=== PATIENT | male | born 1945 | race Caucasian/White ===

== ENCOUNTER 2020-11-25 09:59 | Outpatient (RCR) | payer MEDICARE, OTHER ==
[2021-02-12] MEDS ORDERED: OMEG100032 PO (09:40)
[2021-02-12] MEDS ORDERED: TMSL.4C PO (09:40)
[2021-02-12] MEDS ORDERED: MAGN250T13 PO (09:40)
[2021-02-12] MEDS ORDERED: CHOL200059 PO (09:40)
[2021-02-12] MEDS ORDERED: ASCO100024 PO (09:40)
[2021-02-12] MEDS ORDERED: ASPI-999 PO (09:40)
[2021-02-12] MEDS ORDERED: SIMV40TA25 PO (09:40)
[2021-02-12] MEDS ORDERED: NADO80TA2 PO (09:40)
[2021-02-12] MEDS ORDERED: NITR0.4T39 SL (09:40)
[2021-02-12] MEDS ORDERED: PANT40TA52 PO (09:40)
[2021-02-12] MEDS ORDERED: ISOS30TA82 PO (09:40)
[2021-02-12] MEDS ORDERED: AMLO-250 PO (09:40)
[2021-02-19] MEDS ORDERED: CIPR-226 PO (10:20)
[2021-02-19] MEDS ORDERED: ACET1TAB43 PO (10:20)
== END 2021-02-23 | disposition home or self-care (01) ==
LOC: ONC 09:59
PROVIDERS: ATTEND Radiology Radiation Oncology
DX: C61 Malignant neoplasm of prostate (principal); I11.9 Hypertensive heart disease without heart failure; K21.9 Gastro-esophageal reflux disease without esophagitis; E78.00 Pure hypercholesterolemia, unspecified
CPT/HCPCS: 76873; G0463; 99205

== ENCOUNTER 2021-02-12 05:32 | Outpatient (CLI) | payer MEDICARE, OTHER ==
[~2021-02-12] VITALS: Ht 165.1 cm; Wt 68.6 kg
[2021-02-12] MEDS ORDERED: PANT40TA52 PO (09:40)
[2021-02-12] MEDS ORDERED: OMEG100032 PO (09:40)
[2021-02-12] MEDS ORDERED: TMSL.4C PO (09:40)
[2021-02-12] MEDS ORDERED: AMLO-250 PO (09:40)
[2021-02-12] MEDS ORDERED: MAGN250T13 PO (09:40)
[2021-02-12] MEDS ORDERED: NITR0.4T39 SL (09:40)
[2021-02-12] MEDS ORDERED: SIMV40TA25 PO (09:40)
[2021-02-12] MEDS ORDERED: CHOL200059 PO (09:40)
[2021-02-12] MEDS ORDERED: NADO80TA2 PO (09:40)
[2021-02-12] MEDS ORDERED: ASCO100024 PO (09:40)
[2021-02-12] MEDS ORDERED: ISOS30TA82 PO (09:40)
[2021-02-12] MEDS ORDERED: ASPI-999 PO (09:40)
== END 2021-02-12 09:45 | disposition home or self-care (01) ==
LOC: PREOP 05:32
PROVIDERS: ATTEND Radiology Radiation Oncology
DX: Z01.818 Encounter for other preprocedural examination (principal)

== ENCOUNTER 2021-02-19 09:25 | Day surgery (SDC) | payer MEDICARE, OTHER ==
[2021-02-19] VITALS (11 sets, daily range): BP systolic 93–138; BP diastolic 55–88
[~2021-02-19] VITALS: Ht 165.1 cm; Wt 68.6 kg
[~2021-02-19 09:25] MED LIST: AMLO-250 PO; ASCO100024 PO; ASPI-999 PO; CHOL200059 PO; ISOS30TA82 PO; MAGN250T13 PO; NADO80TA2 PO; NITR0.4T39 SL; OMEG100032 PO; PANT40TA52 PO; SIMV40TA25 PO; TMSL.4C PO
[2021-02-19] MEDS ORDERED: LACTATED RINGERS 1,000 ML IV PRN (09:45)
--- NOTE | 2021-02-19 10:17 | Progress Note-Pre Operative ---
Pre-Operative Progress Note H&P Reviewed The H&P was reviewed, patient examined and no changes noted. Date Seen by Provider: Feb 19, 2021 Time Seen by Provider: : Date H&P Reviewed: Feb 19, 2021 Time H&P Reviewed: : Pre-Operative Diagnosis: Prostate cancer cT1c, PSa 2.97, [place] 7 (4+3) w/ PNI FABIANA PALOMARES MD Feb 19, 2021 10:17
[2021-02-19] MEDS ORDERED: CIPR-226 PO (10:20)
[2021-02-19] MEDS ORDERED: ACET1TAB43 PO (10:20)
--- NOTE | 2021-02-19 10:23 | Discharge Inst-Simple/Standard ---
Discharge Inst-Standard Reconcile Patient Problems Problems Reviewed?: Yes Discharge Medications New, Converted or Re-Newed RX: RX Given to Pt/Family Patient Instructions/Follow Up Plan of Care/Instructions/FU: 1)Post implant scan at [facility] cancer center 03/19/21 at 10:00 a.m. 2)Follow up with Dr. Swann 03/21/21 at 10:15 a.m. Activity as Tolerated: Yes Discharge Diet: No Restrictions Other Inst to Patient Please instruct in palomino catheter care. Patient has an appointment for palomino removal at Dr. Swann's office on Wednesday02/24/21 at 8:00 a.m. FABIANA PALOMARES MD Feb 19, 2021 10:23
[2021-02-19] MEDS ORDERED: MIDAZOLAM 2 MG/2 ML (VERSED) VIAL ONE (11:23)
[2021-02-19] MEDS ORDERED: fentaNYL INJ 100 MCG/2 ML AMP ONE (11:23)
[2021-02-19] MEDS ORDERED: GLYCOPYRROLATE 0.2 MG/ML (ROBINUL) 2 ML VIAL ONE (12:05)
[2021-02-19] MEDS ORDERED: BACITRACIN OINTMENT 28 GM TUBE ONE (12:19)
[2021-02-19] MEDS ORDERED: proPOfol 200 MG/20 ML (DIPRIVAN) VIAL IV ONE (12:31)
[2021-02-19] MEDS ORDERED: SEVOFLURANE (ULTANE) 15 ML INHAL SOLN ONE (12:31)
[2021-02-19] MEDS ORDERED: ONDANSETRON 4 MG/2 ML (SDV) Z0FRAN ONE (12:32)
[2021-02-19] MEDS ORDERED: LIDOCAINE PF 2% 5 ML (XYLOCAINE) VIAL ONE (12:32)
--- NOTE | 2021-02-19 13:18 | Progress Note-Post Operative ---
Post-Operative Progess Note Surgeon (s)/Glassie (s) Surgeon FABIANA PALOMARES MD Glassie: Roxy CASTILLO MD Pre-Operative Diagnosis Prostate cancer cT1c, PSA2.97, [place] 7 (4+3) w/ PNI Post-Operative Diagnosis Same as prop Procedure & Operative Findings Date of Procedure 02/19/21 Procedure Performed/Findings (1) 67% attenuated Cesium 131 permanent prostate seed implant (2) Injection of biodegradable hydrogel prostate-rectal spacer utilizing the [employer] Eliecer system (3) Cystogram Anesthesia Type Generl Estimated Blood Loss Estimated blood loss (mL): Minimal Specimens/Packing Specimens Removed N/A Packing: N/A FABIANA PALOMARES MD Feb 19, 2021 13:18
--- NOTE | 2021-02-19 13:29 | Diagnostic Imaging Report ---
INDICATION: Fluoroscopy for brachytherapy. Fluoroscopy was provided for Dr. Youngblood at for prostate brachytherapy. 9 seconds of fluoroscopic time was utilized. A single image was obtained demonstrating multiple radiation seed implants. IMPRESSION: Fluoroscopy for brachytherapy. Dictated by: Dictated on workstation # [id number]
== END 2021-02-19 14:45 | disposition home or self-care (01) ==
LOC: SDC 09:25
PROVIDERS: ATTEND Radiology Radiation Oncology
DX: C61 Malignant neoplasm of prostate (principal); I10 Essential (primary) hypertension; I50.9 Heart failure, unspecified; K21.9 Gastro-esophageal reflux disease without esophagitis; E78.00 Pure hypercholesterolemia, unspecified; M19.90 Unspecified osteoarthritis, unspecified site; N40.1 Benign prostatic hyperplasia with lower urinary tract symptoms; E78.5 Hyperlipidemia, unspecified; G62.9 Polyneuropathy, unspecified; Z90.89 Acquired absence of other organs; Z79.899 Other long term (current) drug therapy; Z80.3 Family history of malignant neoplasm of breast; Z80.42 Family history of malignant neoplasm of prostate
CPT/HCPCS: 55874; 76000; 76965; 77290; 77318; 77332; 77370; 77470; 77778; 87081; C1715 ×2; C1889; C2643

== ENCOUNTER 2021-03-19 09:45 | Outpatient (RCR) | payer MEDICARE, OTHER ==
[~2021-03-19 09:45] MED LIST changes: +ACET1TAB43 PO; +CIPR-226 PO
== END 2021-04-04 | disposition home or self-care (01) ==
LOC: ONC 09:45
PROVIDERS: ATTEND Radiology Radiation Oncology
DX: Z51.0 Encounter for antineoplastic radiation therapy (principal); C61 Malignant neoplasm of prostate; I11.9 Hypertensive heart disease without heart failure; K21.9 Gastro-esophageal reflux disease without esophagitis; E78.00 Pure hypercholesterolemia, unspecified
CPT/HCPCS: 77290; 77295; 84153

== ENCOUNTER → 2021-05-05 | Outpatient (RCR) | payer MEDICARE, OTHER | END | disposition home or self-care (01) | LOC: ONC 04-21 09:54 | PROVIDERS: ATTEND Radiology Radiation Oncology | DX: Z51.0 Encounter for antineoplastic radiation therapy (principal); C61 Malignant neoplasm of prostate; I11.9 Hypertensive heart disease without heart failure; K21.9 Gastro-esophageal reflux disease without esophagitis; E78.00 Pure hypercholesterolemia, unspecified | CPT/HCPCS: 77300; 77301; 77334; 77338; 77385; 77470 ==

== ENCOUNTER → 2021-06-02 | Outpatient (RCR) | payer MEDICARE, OTHER | END | disposition home or self-care (01) | LOC: ONC 05-06 09:52 | PROVIDERS: ATTEND Radiology Radiation Oncology | DX: Z51.0 Encounter for antineoplastic radiation therapy (principal); C61 Malignant neoplasm of prostate; I10 Essential (primary) hypertension; K21.9 Gastro-esophageal reflux disease without esophagitis; E78.00 Pure hypercholesterolemia, unspecified; Z80.42 Family history of malignant neoplasm of prostate | CPT/HCPCS: 77385; G0463; 77336 ==

== ENCOUNTER 2021-06-26 08:54 | Outpatient (RCR) | payer MEDICARE, OTHER | END 2021-07-03 | disposition home or self-care (01) | LOC: ONC 08:54 | PROVIDERS: ATTEND Radiology Radiation Oncology | DX: Z51.0 Encounter for antineoplastic radiation therapy (principal); C61 Malignant neoplasm of prostate; I11.9 Hypertensive heart disease without heart failure; K21.9 Gastro-esophageal reflux disease without esophagitis; E78.00 Pure hypercholesterolemia, unspecified; Z80.42 Family history of malignant neoplasm of prostate | CPT/HCPCS: 77385; G0463; 77336; 84153; 99213 ==

== ENCOUNTER 2022-01-01 09:19 | Outpatient (RCR) | payer MEDICARE, OTHER ==
[~2022-01-01 09:19] MED LIST changes: +ACET-11 PO; -ACET1TAB43 PO
== END 2022-01-02 ==
LOC: ONC 09:19
PROVIDERS: ATTEND Radiology Radiation Oncology
DX: C61 Malignant neoplasm of prostate (principal)
CPT/HCPCS: G0103; G0463; 36415; 84153; 99213

== ENCOUNTER 2022-06-11 09:21 | Outpatient (RCR) | payer MEDICARE, OTHER | END 2022-07-03 | disposition home or self-care (01) | LOC: ONC 09:21 | PROVIDERS: ATTEND Radiology Radiation Oncology | DX: C61 Malignant neoplasm of prostate (principal); I11.9 Hypertensive heart disease without heart failure; K21.9 Gastro-esophageal reflux disease without esophagitis; E78.00 Pure hypercholesterolemia, unspecified | CPT/HCPCS: G0103; G0463; 36415; 84153; 99213 ==